=== PATIENT | male | born 1955 | race Caucasian/White ===

== ENCOUNTER 2018-01-13 06:55 | Day surgery (SDC) | payer BC ==
[2018-01-12 16:06] LABS: Absolute Lymphocytes (CBC) 2.5 K/uL (0.7-4.9); Absolute Monocytes 0.9 K/uL (0.1-1.3); Absolute Neutrophil 3.9 K/uL (1.8-8.0); Basophils % 0.6 % (0-1.3); Eosinophils % 4.3 % (0-4.4); Hematocrit 41.6 % (39.6-49.0); Lymphocytes % 32.4 % (15.3-44.8); MCH 34.3 pg (27.0-35.0); MCV 99.3 fL (80-100); MPV 8.3 fL (7.6-11.3); Monocytes % 12.1 % (3.3-12.3); RBC Red Blood Cell Count 4.19 M/uL (4.33-5.43)
[2018-01-12 16:19] LABS: Protime INR 1.73
[2018-01-12 16:33] LABS: Potassium 4.2 mmol/L (3.5-5.1)
[2018-01-13] MEDS ORDERED: NA CHLORIDE 0.9% 500 ML ONE (07:28)
[2018-01-13] MEDS ORDERED: MIDAZOLAM HCL 5 MG/5 ML INJ ONE (07:55)
--- NOTE | 2018-01-13 08:26 | EKG ---
Test Date: 2018-01-13 Test Time: 08:06:57 Nanotechnician: LORENA MEASUREMENT RESULTS: Intervals: Rate: 66 [place]: 190 QRSD: 80 QT: 458 QTc: 480 [place]: P: 42 [place]: 190 QRS: 49 T: 28 INTERPRETIVE STATEMENTS: Normal sinus rhythm Prolonged QT Abnormal ECG Compared to ECG 01/09/2016 08:31:04 Prolonged QT interval now present Sinus tachycardia no longer present Electronically Signed On 01-13-18 08:26:08 CDT by Yash Hutchinson
--- NOTE | 2018-01-13 11:11 | OP ---
Surgeon: Yash Hutchinson MD Primary Care Physician: Ronen Pulido MD Procedure: Direct current cardioversion. Findings: The patient was in AFib. With a single shock, he reverted to sinus rhythm. Procedure In Detail: He was brought to the cardiac woods laborer in a fasting state. He had taken Xarelt o more than 3 weeks. He had taken Multaq for a week. He was sedated with Versed. Anterior-posterio r paddles were applied to his chest. A single shock was given, synchronized the QRS complex. The rh ythm after the shock was sinus rhythm. No complications. /MODL Voice ID: [id number] Report ID: [id number]
== END 2018-01-13 09:20 | disposition home or self-care (01) ==
LOC: CCL 06:55
PROVIDERS: ATTEND Internal Medicine
PROC: 5A2204Z Restoration of Cardiac Rhythm, Single (ICD-10-PCS; principal; 2018-01-13)
DX: I48.91 Unspecified atrial fibrillation (principal); I10 Essential (primary) hypertension
CPT/HCPCS: 36415; 80048; 85025; 85610; 85730; 92960; 93005; J2250

== ENCOUNTER 2020-04-09 15:49 | Emergency (ER) | payer BC ==
--- NOTE | 2020-04-09 16:11 | RAD REPORT ---
EXAM DESCRIPTION: CT - Ct Stroke Brain Wo Cont - 04/09/2020 4:01 pm CLINICAL HISTORY: Numbness/right arm weakness COMPARISON: none TECHNIQUE: Computed axial tomography of the head was obtained. All CT scans are performed using dose optimization technique as appropriate and may include automated exposure control or mA/KV adjustment according to patient size. FINDINGS: An intracranial bleed is not seen . The ventricles are normal in caliber. No extra-axial fluid collection is noted. Fluid within the sinuses/ mastoids is not seen. IMPRESSION: No acute intracranial abnormality is seen. If patient's symptoms persist MRI of the bra in would be recommended. Karis Martinez of the emergency room was notified at 4:04 p.m. April 09, 2020
[2020-04-09] MEDS ORDERED: NA CHLORIDE 0.9% 1,000 ML ONE (16:31)
[2020-04-09 16:32] LABS: Protime INR 1.53
[2020-04-09] MEDS ORDERED: FOLIC ACID 5 MG/ML VIAL ONE (16:32)
[2020-04-09 16:35] LABS: Potassium 3.4 mmol/L (3.5-5.1)
[2020-04-09 16:36] LABS: Absolute Lymphocytes (CBC) 2.8 K/uL (0.7-4.9); Basophils % 0.8 % (0-1.3); Lymphocytes % 35.9 % (15.3-44.8); MPV 8.2 fL (7.6-11.3); RBC Red Blood Cell Count 4.51 M/uL (4.33-5.43)
--- NOTE | 2020-04-09 16:50 | RAD REPORT ---
EXAM DESCRIPTION: Jennifer Single View04/09/2020 4:20 pm CLINICAL HISTORY: Hypertension COMPARISON: none FINDINGS: The lungs appear clear of acute infiltrate. The heart is normal size IMPRESSION: No acute abnormalities displayed
--- NOTE | 2020-04-09 17:07 | EDPHYS ---
Physician Documentation [facility] Name: Sreedhar Posey Age: 64 yrs Sex: Male : 1955 Arrival Date: 04/09/2020 Time: 15:50 Bed 8 Private MD: ED Physician Cabrera Acuna HPI: 04/09 16:38 This 64 yrs old Male presents to ER via Ambulatory with complaints of S/S of chriss Possible Stroke. 16:38 The patient's problem is reported as a facial droop, paresthesias, weakness, in the chriss right upper extremity. Onset: The symptoms/episode began/occurred 2 hour(s) ago. Duration: The episodes are intermittent, lasting 90 second(s). Context: the episode(s) was witnessed, by no one, symptoms became apparent at 15:00. The symptoms are alleviated by nothing. The symptoms are aggravated by nothing. Associated signs and symptoms: The patient has no apparent associated signs or symptoms. Severity of symptoms: At their worst the symptoms were mild in the emergency department the symptoms have improved markedly. Patient's baseline: Neuro: alert and fully oriented. Historical: - Allergies: 16:10 No Known Allergies; aa5 - Home Meds: 19:17 Xarelto 20 mg oral tab 1 tab once daily [Active]; Rythmol 225 mg oral tab 1 tab twice a dm5 day [Active]; lisinopril-hydrochlorothiazide 20-12.5 mg oral tab 1 tab once daily [Active]; atorvastatin 10 mg oral tab 1 tab once daily [Active]; bisoprolol-hydrochlorothiazide 10-6.25 mg oral tab 1 tab once daily [Active]; - PMHx: 16:10 Atrial Fib; Hypertension; aa5 - PSHx: 16:10 Knee surgery; aa5 - Family history:: not pertinent. ROS: 16:38 Constitutional: Negative for fever, chills, and weight loss, Eyes: Negative for injury, chriss pain, redness, and discharge, ENT: Negative for injury, pain, and discharge, Neck: Negative for injury, pain, and swelling, Cardiovascular: Negative for chest pain, palpitations, and edema, Respiratory: Negative for shortness of breath, cough, wheezing, and pleuritic chest pain, Abdomen/GI: Negative for abdominal pain, nausea, vomiting, diarrhea, and constipation, Back: Negative for injury and pain, : Negative for injury, bleeding, discharge, and swelling, MS/Extremity: Negative for injury and deformity, Skin: Negative for injury, rash, and discoloration, Psych: Negative for depression, anxiety, suicide ideation, homicidal ideation, and hallucinations, Allergy/Immunology: Negative for hives, rash, and allergies, Endocrine: Negative for neck swelling, polydipsia, polyuria, polyphagia, and marked weight changes, Hematologic/Lymphatic: Negative for swollen nodes, abnormal bleeding, and unusual bruising. 16:38 Neuro: Positive for numbness, weakness, of the left jaw, right arm weakness and numbness. Exam: 16:38 Radiologist reports: negative chriss 16:38 Constitutional: This is a well developed, well nourished patient who is awake, alert, and in no acute distress. Head/Face: Normocephalic, atraumatic. Eyes: Pupils equal round and reactive to light, extra-ocular motions intact. Lids and lashes normal. Conjunctiva and sclera are non-icteric and not injected. Cornea within normal limits. Periorbital areas with no swelling, redness, or edema. ENT: Nares patent. No nasal discharge, no septal abnormalities noted. Tympanic membranes are normal and external auditory canals are clear. Oropharynx with no redness, swelling, or masses, exudates, or evidence of obstruction, uvula midline. Mucous membranes moist. Neck: Trachea midline, no thyromegaly or masses palpated, and no cervical lymphadenopathy. Supple, full range of motion without nuchal rigidity, or vertebral point tenderness. No Meningismus. Chest/axilla: Normal chest wall appearance and motion. Nontender with no deformity. No lesions are appreciated. Cardiovascular: Regular rate and rhythm with a normal S1 and S2. No gallops, murmurs, or rubs. Normal PMI, no JVD. No pulse deficits. Respiratory: Lungs have equal breath sounds bilaterally, clear to auscultation and percussion. No rales, rhonchi or wheezes noted. No increased work of breathing, no retractions or nasal flaring. Abdomen/GI: Soft, non-tender, with normal bowel sounds. No distension or tympany. No guarding or rebound. No evidence of tenderness throughout. Back: No spinal tenderness. No costovertebral tenderness. Full range of motion. Male : Normal genitalia with no discharge or lesions. Skin: Warm, dry with normal turgor. Normal color with no rashes, no lesions, and no evidence of cellulitis. MS/ Extremity: Pulses equal, no cyanosis. Neurovascular intact. Full, normal range of motion. Neuro: Awake and alert, GCS 15, oriented to person, place, time, and situation. Cranial nerves II-XII grossly intact. Motor strength 5/5 in all extremities. Sensory grossly intact. Cerebellar exam normal. Normal gait. Psych: Awake, alert, with orientation to person, place and time. Behavior, mood, and affect are within normal limits. 16:43 ECG was reviewed by the Attending Physician. [facility] Vital Signs: 16:10 BP 126 / 81; Pulse 67; Resp 20 S; Temp 98.3(O); Pulse Ox 98% on R/A; aa5 17:00 BP 124 / 68; Pulse 68; Resp 18; Pulse Ox 98% ; bp 18:00 BP 139 / 80; Pulse 58; Resp 16 S; Pulse Ox 98% on R/A; aa5 19:38 BP 129 / 70; Pulse 56 MON; Resp 18; Temp 98.3; Pulse Ox 98% on R/A; sg NIH Stroke Scale Scores: 16:10 NIHSS Score: 0 aa5 16:43 NIHSS Score: 0 chriss 17:15 NIHSS Score: 0 bp 18:20 NIHSS Score: 0 aa5 MDM: 15:54 Patient medically screened. chriss 16:42 Differential diagnosis: CVA, TIA, Dementia, metabolic disorder. Data reviewed: vital chriss signs, nurses notes. Data interpreted: bus monitor: rate is 67 beats/min, rhythm is normal sinus rhythm. Test interpretation: by ED physician or midlevel provider: ECG, plain radiologic studies. Counseling: I had a detailed discussion with the patient and/or guardian regarding: the historical points, exam findings, and any diagnostic results supporting the discharge/admit diagnosis, lab results, radiology results. Physician consultation: Kevin Aguilar MD regarding if ct angio head and neck negative keep here. 04/09 15:56 Order name: Basic Metabolic Panel; Complete Time: 16:37 aa5 04/09 15:56 Order name: CBC with Diff; Complete Time: 17:45 aa5 04/09 15:56 Order name: Protime (+inr); Complete Time: 17:45 04/09 15:56 Order name: Ptt, Activated; Complete Time: 17:45 04/09 16:13 Order name: TSH; Complete Time: 17:45 chriss 04/09 16:21 Order name: Glucose, Ancillary Testing; Complete Time: 16:34 EDMS 04/09 15:54 Order name: CT Stroke Brain w/o Contrast; Complete Time: 16:34 ca1 04/09 15:56 Order name: Stroke CXR 1 View; Complete Time: 17:45 aa5 04/09 16:14 Order name: Head Angio CT; Complete Time: 19:12 bd 04/09 16:14 Order name: Neck Angio CT; Complete Time: 19:12 bd 04/09 19:04 Order name: Urine Dipstick--Ancillary (enter results) tt3 04/09 20:15 Order name: SARS-COV-2 RT PCR EDMS 04/09 15:56 Order name: EKG; Complete Time: 15:56 04/09 15:56 Order name: Accucheck; Complete Time: 16:09 04/09 15:56 Order name: Cardiac monitoring; Complete Time: 16:09 04/09 15:56 Order name: EKG - Nurse/Tech; Complete Time: 16:09 04/09 15:56 Order name: IV Saline Lock; Complete Time: 16:09 04/09 15:56 Order name: Labs collected and sent; Complete Time: 16:10 04/09 15:56 Order name: NPO; Complete Time: 16:10 04/09 15:56 Order name: O2 Per Protocol; Complete Time: 16:10 04/09 15:56 Order name: O2 Sat Monitoring; Complete Time: 16:10 04/09 15:56 Order name: Stroke Swallow Screen; Complete Time: 16:10 04/09 16:13 Order name: Urine Dipstick-Ancillary (obtain specimen); Complete Time: 19:08 [facility] EC:43 Rate is 75 beats/min. Rhythm is regular. QRS [place] is Normal. [place] interval is normal. QRS chriss interval is normal. QT interval is normal. No Q waves. T waves are Normal. No ST changes noted. Clinical impression: Normal ECG and No evidence of ischemia. Interpreted by me. Reviewed by me. Administered Medications: 16:18 Drug: NS 0.9% 1000 ml Route: IV; Rate: 1 bolus; Site: right antecubital; aa5 18:32 Follow up: IV Status: Completed infusion; IV Intake: 1000ml bp 16:18 Drug: foLIC Acid 1 mg Route: IVPB; Site: right antecubital; aa5 18:31 Follow up: IV Status: Completed infusion; IV Intake: 100ml bp 17:30 Drug: Lipitor 20 mg Route: PO; aa5 18:31 Follow up: Response: No adverse reaction bp 18:00 Drug: NS 0.9% with KCl 20 mEq/L 1000 ml Route: IV; Rate: 125 ml/hr; Site: right bp antecubital; 20:00 Drug: Rythmol 225 mg Route: PO; dm5 21:00 Follow up: Response: No adverse reaction sg Point of Care Testing: Blood Glucose: 16:10 Blood Glucose: 205 mg/dL; aa5 Ranges: Critical Glucose Levels:Adult <50 mg/dl or >400 mg/dl <40 mg/dl or >180 mg/dl Disposition: 04/09/20 17:56 Transfer ordered to [facility]. Diagnosis are Transient cerebral ischemic attack, unspecified, Occlusion and stenosis of carotid artery - 70 % bulb on the left. - Reason for transfer: Higher level of care. - Accepting physician is to [facility], neuro. - Condition is Fair. - Problem is new. - Symptoms have improved. NIH Stroke Scale - NIH Stroke Score Date: 04/09/2020 Time: 16:10 Total Score = 0 1a. Level of Consciousness (LOC) - 0(Alert) 1b. Level of Consciousness (LOC) (Year \T\ Age) - 0(Both) 1c. LOC Commands (Open \T\ Closes Eyes/Blending Tank Tender) - 0(Both) 2. Best Gaze (Lateral Gaze Paresis) - 0(Normal) 3. Visual Field Loss - 0(No visual loss) 4. Facial Palsy - 0(Normal) 5a. Left Arm: Motor (10-second hold) - 0(No drift) 5b. Right Arm: Motor (10-second hold) - 0(No drift) 6a. Left Leg: Motor (5-second hold - always test supine) - 0(No drift) 6b. Right Leg: Motor (5-second hold - always test supine) - 0(No drift) 7. Limb Ataxia (finger/nose \T\ heel/gutierrez - test with eyes open) - 0(Absent) 8. Sensory Loss (pinprick arms/legs/face) - 0(Normal) 9. Best Language: Aphasia (description/naming/reading) - 0(No aphasia) 10. Dysarthria (speech clarity - read or repeat words) - 0(Normal) 11. Extinction and Inattention (visual/tactile/auditory/spatial/personal) - 0(No abnormality) Initials: aa5 NIH Stroke Scale - NIH Stroke Score Date: 04/09/2020 Time: 16:43 Total Score = 0 1a. Level of Consciousness (LOC) - 0(Alert) 1b. Level of Consciousness (LOC) (Year \T\ Age) - 0(Both) 1c. LOC Commands (Open \T\ Closes Eyes/Blending Tank Tender) - 0(Both) 2. Best Gaze (Lateral Gaze Paresis) - 0(Normal) 3. Visual Field Loss - 0(No visual loss) 4. Facial Palsy - 0(Normal) 5a. Left Arm: Motor (10-second hold) - 0(No drift) 5b. Right Arm: Motor (10-second hold) - 0(No drift) 6a. Left Leg: Motor (5-second hold - always test supine) - 0(No drift) 6b. Right Leg: Motor (5-second hold - always test supine) - 0(No drift) 7. Limb Ataxia (finger/nose \T\ heel/gutierrez - test with eyes open) - 0(Absent) 8. Sensory Loss (pinprick arms/legs/face) - 0(Normal) 9. Best Language: Aphasia (description/naming/reading) - 0(No aphasia) 10. Dysarthria (speech clarity - read or repeat words) - 0(Normal) 11. Extinction and Inattention (visual/tactile/auditory/spatial/personal) - 0(No abnormality) Initials: chriss NIH Stroke Scale - NIH Stroke Score Date: 04/09/2020 Time: 17:15 Total Score = 0 1a. Level of Consciousness (LOC) - 0(Alert) 1b. Level of Consciousness (LOC) (Year \T\ Age) - 0(Both) 1c. LOC Commands (Open \T\ Closes Eyes/Blending Tank Tender) - 0(Both) 2. Best Gaze (Lateral Gaze Paresis) - 0(Normal) 3. Visual Field Loss - 0(No visual loss) 4. Facial Palsy - 0(Normal) 5a. Left Arm: Motor (10-second hold) - 0(No drift) 5b. Right Arm: Motor (10-second hold) - 0(No drift) 6a. Left Leg: Motor (5-second hold - always test supine) - 0(No drift) 6b. Right Leg: Motor (5-second hold - always test supine) - 0(No drift) 7. Limb Ataxia (finger/nose \T\ heel/gutierrez - test with eyes open) - 0(Absent) 8. Sensory Loss (pinprick arms/legs/face) - 0(Normal) 9. Best Language: Aphasia (description/naming/reading) - 0(No aphasia) 10. Dysarthria (speech clarity - read or repeat words) - 0(Normal) 11. Extinction and Inattention (visual/tactile/auditory/spatial/personal) - 0(No abnormality) Initials: bp NIH Stroke Scale - NIH Stroke Score Date: 04/09/2020 Time: 18:20 Total Score = 0 1a. Level of Consciousness (LOC) - 0(Alert) 1b. Level of Consciousness (LOC) (Year \T\ Age) - 0(Both) 1c. LOC Commands (Open \T\ Closes Eyes/Blending Tank Tender) - 0(Both) 2. Best Gaze (Lateral Gaze Paresis) - 0(Normal) 3. Visual Field Loss - 0(No visual loss) 4. Facial Palsy - 0(Normal) 5a. Left Arm: Motor (10-second hold) - 0(No drift) 5b. Right Arm: Motor (10-second hold) - 0(No drift) 6a. Left Leg: Motor (5-second hold - always test supine) - 0(No drift) 6b. Right Leg: Motor (5-second hold - always test supine) - 0(No drift) 7. Limb Ataxia (finger/nose \T\ heel/gutierrez - test with eyes open) - 0(Absent) 8. Sensory Loss (pinprick arms/legs/face) - 0(Normal) 9. Best Language: Aphasia (description/naming/reading) - 0(No aphasia) 10. Dysarthria (speech clarity - read or repeat words) - 0(Normal) 11. Extinction and Inattention (visual/tactile/auditory/spatial/personal) - 0(No abnormality) Initials: rico5 Signatures: Dispatcher [employer] EDSC Zuri Gant, RN RN 5 Capo Loyola RN RN Cabrera Mancia MD MD cha Calderon, Audri, RN RN aa5 Ronen Gil RN RN bp Corrections: (The following items were deleted from the chart) 17:51 17:06 Hospitalization Ordered by Ramsey Solares DO for Inpatient Admission. [facility] Preliminary diagnosis is Transient cerebral ischemic attack, unspecified - right face and right arm weakness; Aphasia. Bed requested for Telemetry/MedSurg (Inpatient). Status is Inpatient Admission. Condition is Fair. Problem is new. Symptoms have improved. [facility] 19:17 16:10 Home Meds: Xarelto oral oral; cal [id number] 19:17 16:10 Home Meds: Lisinopril Oral; cal david 19:17 16:10 Home Meds: Rythmol Oral; [place] [id number] 19:27 19:14 CORONAVIRUS+MR.LAB.CHRISTOPHERZ ordered. [facility] EDMS 22:32 17:56 04/09/2020 17:[address] [facility]. Diagnosis is Transient cerebral ischemic attack, unspecified; Occlusion and stenosis of carotid artery - 70 % bulb on the left. Reason for transfer: Higher level of care. Accepting physician is to [facility], neuro. Condition is Fair. Problem is new. Symptoms have improved. chriss
--- NOTE | 2020-04-09 17:07 | ER ---
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 ca1 Symptoms resolved at this time. Had headache off and on for 2 days and visual problems. HX of A-fib. Pt on Xarelto. VAN negative. Negative slurring. Negative facial droop. Onset of symptoms was April 09, 2020 at 15:10. 15:55 Method Of Arrival: Ambulatory ca1 15:55 Acuity: JOSE 2 ca1 15:55 An acute neurological deficit is present. Pre-hospital glucose is not applicable to aa5 this patient. 16:10 Risk Assessment: Do you want to hurt yourself or someone else? Patient reports no aa5 desire to harm self or others. 16:10 Coronavirus screen: Client denies travel out of the [place] in the last 14 days. At this aa5 time, the client does not indicate any symptoms associated with coronavirus-19. Ebola Screen: Patient negative for fever greater than or equal to 101.5 degrees Fahrenheit, and additional compatible Ebola Virus Disease symptoms. Initial Sepsis Screen: Does the patient meet any 2 criteria? No. Patient's initial sepsis screen is negative. Does the patient have a suspected source of infection? No. Patient's initial sepsis screen is negative. Stroke Activation: Symptom onset < 3 hours Physician: Stroke Attending; Name: ; Notified At: ; Arrived At: Physician: Chief Stroke Resident; Name: ; Notified At: ; Arrived At: Physician: Stroke Resident; Name: ; Notified At: ; Arrived At: Physician: ED Attending; Name: ; Notified At: ; Arrived At: Physician: ED Resident; Name: ; Notified At: ; Arrived At: Historical: - Allergies: 16:10 No Known Allergies; aa5 - Home Meds: 19:17 Xarelto 20 mg oral tab 1 tab once daily [Active]; Rythmol 225 mg oral tab 1 tab twice a dm5 day [Active]; lisinopril-hydrochlorothiazide 20-12.5 mg oral tab 1 tab once daily [Active]; atorvastatin 10 mg oral tab 1 tab once daily [Active]; bisoprolol-hydrochlorothiazide 10-6.25 mg oral tab 1 tab once daily [Active]; - PMHx: 16:10 Atrial Fib; Hypertension; aa5 - PSHx: 16:10 Knee surgery; aa5 - Family history:: not pertinent. Screenin:10 Abuse screen: Denies threats or abuse. Nutritional screening: No deficits noted. aa5 Tuberculosis screening: No symptoms or risk factors identified. Fall Risk None identified. Assessment: 16:01 Reassessment: Dr. Acuna at bedside. ca1 16:08 Reassessment: Pt back from CT scan . aa5 16:10 VAN Scoring: Arm Drift: Patients demonstrates NO arm weakness. Patient is VAN Negative. aa5 Visual Disturbance: No visual disturbance noted. Aphasia: No aphasia noted. Neglect: No neglect noted. 16:10 General: Appears comfortable, Behavior is calm, cooperative. Pain: Denies pain. Neuro: aa5 Level of Consciousness is awake, alert, obeys commands, Oriented to person, place, time, situation, Appropriate for age Hop Weigher are equal bilaterally Moves all extremities. Speech is normal, Facial symmetry appears normal, Pupils are PERRLA, Denies weakness blurred vision dizziness, difficulty swallowing, paresthesias numbness headache diplopia. Cardiovascular: Heart tones S1 S2 present. Respiratory: Airway is patent Respiratory effort is even, unlabored, Respiratory pattern is regular, symmetrical, Denies cough, shortness of breath. GI: No signs and/or symptoms were reported involving the gastrointestinal system. Patient currently denies diarrhea, nausea, vomiting. : No signs and/or symptoms were reported regarding the genitourinary system. EENT: No signs and/or symptoms were reported regarding the EENT system. Derm: Skin is pink, warm \T\ dry. Musculoskeletal: Range of motion: intact in all extremities. 16:10 T-PA (Activase) Screening: Contraindications: Rapidly improving condition or minor aa5 deficit: Yes. 16:20 Patient has been NPO before screening. The patient is alert, and able to follow aa5 commands. The patient does not exhibit slurred or garbled speech. The patient is not exhibiting difficulty speaking. The patient does not exhibit difficulty understanding words. The patient is able to swallow own secretions with no drooling or need for suction. Patient tolerated one teaspoon of water. No drooling, immediate coughing, gurgling, or clearing of the throat was noted. The patient tolerated 90mL of water. No drooling, immediate coughing, gurgling, or clearing of the throat was noted. The patient passed the bedside swallow screening. Oral medications may be given as ordered. Contact Physician for further diet orders. Provider notified of bedside swallow screening results: Cabrera Acuna MD. 17:15 Reassessment: PT RETURNED FROM CT. bp 17:15 Reassessment: Patient appears in no apparent distress at this time. No changes from bp previously documented assessment. Patient and/or family updated on plan of care and expected duration. Pain level reassessed. Patient is alert, oriented x 3, equal unlabored respirations, skin warm/dry/pink. 18:20 Reassessment: Patient is alert, oriented x 3, equal unlabored respirations, skin aa5 warm/dry/pink. Patient denies pain at this time. 20:18 Reassessment: attempt to call report to receiving nurse, awaiting admin approval for pt sg transfer, Yandy RN with [facility] requesting 10 more minutes for a call back. 21:11 Reassessment: Patient appears in no apparent distress at this time. Patient and/or sg family updated on plan of care and expected duration. Pain level reassessed. Patient is alert, oriented x 3, equal unlabored respirations, skin warm/dry/pink. no call back from transfer center, attempt to call them, [place] [facility] coordinator states that she is awaiting a call back from the [facility] for patient placement at this time, awaiting another call back for this patient transfer. 21:21 Reassessment: Patient appears in no apparent distress at this time. Patient is alert, sg oriented x 3, equal unlabored respirations, skin warm/dry/pink. pt updated on transfer status, placed to a hospital bed for comfort while awaiting pt transfer at this time. 21:26 Reassessment: orders to hld pt at this facility until [facility] has patient sg placement her Mildred RN, pt to remain in the facility until instructed to call report. Charge Nurse aware. 21:40 Reassessment: Report called to Erika GUERRERO for patient transfer, pt signatures obtained, sg awaiting EMS transport at this time, pt stated understanding. Vital Signs: 16:10 BP 126 / 81; Pulse 67; Resp 20 S; Temp 98.3(O); Pulse Ox 98% on R/A; aa5 17:00 BP 124 / 68; Pulse 68; Resp 18; Pulse Ox 98% ; bp 18:00 BP 139 / 80; Pulse 58; Resp 16 S; Pulse Ox 98% on R/A; aa5 19:38 BP 129 / 70; Pulse 56 MON; Resp 18; Temp 98.3; Pulse Ox 98% on R/A; sg NIH Stroke Scale Scores: 16:10 NIHSS Score: 0 aa5 16:43 NIHSS Score: 0 chriss 17:15 NIHSS Score: 0 bp 18:20 NIHSS Score: 0 aa5 ED Course: 15:50 Patient arrived in ED. as 15:53 Gabbie Brewer, CESAR is Primary Nurse. aa5 15:54 Cabrera Acuna MD is Attending Physician. chriss 15:57 Triage completed. ca1 16:00 CT Stroke Brain w/o Contrast In Process Unspecified. EDMS 16:01 Arm band placed on right wrist. ca1 16:10 Patient has correct armband on for positive identification. Placed in gown. Bed in low mh5 position. Call light in reach. Side rails up X 1. Warm blanket given. property assessment monitor on. Pulse ox on. NIBP on. 16:10 EKG done, by ED staff, reviewed by Cabrera Acuna MD. mh5 16:10 Initial lab(s) drawn, by md, sent to lab. Inserted saline lock: 18 gauge in right aa5 antecubital area, using aseptic technique. Blood collected. 16:11 Ptt, Activated Sent. mh5 16:11 Protime (+inr) Sent. mh5 16:11 CBC with Diff Sent. mh5 16:11 Basic Metabolic Panel Sent. mh5 16:23 Stroke CXR 1 View In Process Unspecified. EDMS 17:01 Ramsey Solares DO is Hospitalizing Provider. chriss 17:[address] In Process Unspecified. EDMS 17:[address] In Process Unspecified. EDMS 19:00 Report given to Capo Loyola RN. aa5 19:28 COVID swab sent to lab. 19:39 Primary Nurse role handed off by Gabbie Brewer, RN sg 19:39 Capo Loyola, RN is Primary Nurse. sg Administered Medications: 16:18 Drug: NS 0.9% 1000 ml Route: IV; Rate: 1 bolus; Site: right antecubital; aa5 18:32 Follow up: IV Status: Completed infusion; IV Intake: 1000ml bp 16:18 Drug: foLIC Acid 1 mg Route: IVPB; Site: right antecubital; aa5 18:31 Follow up: IV Status: Completed infusion; IV Intake: 100ml bp 17:30 Drug: Lipitor 20 mg Route: PO; aa5 18:31 Follow up: Response: No adverse reaction bp 18:00 Drug: NS 0.9% with KCl 20 mEq/L 1000 ml Route: IV; Rate: 125 ml/hr; Site: right bp antecubital; 20:00 Drug: Rythmol 225 mg Route: PO; dm5 21:00 Follow up: Response: No adverse reaction sg Point of Care Testing: Blood Glucose: 16:10 Blood Glucose: 205 mg/dL; aa5 Ranges: Intake: 18:31 IV: 100ml; Total: 100ml. bp 18:32 IV: 1000ml; Total: 1100ml. bp Outcome: 17:06 Decision to Hospitalize by Provider. chriss 17:56 ER care complete, transfer ordered by . chriss 22:32 Patient left the ED. NIH Stroke Scale - NIH Stroke Score Date: 04/09/2020 Time: 16:10 Total Score = 0 1a. Level of Consciousness (LOC) - 0(Alert) 1b. Level of Consciousness (LOC) (Year \T\ Age) - 0(Both) 1c. LOC Commands (Open \T\ Closes Eyes/Health Program Manager) - 0(Both) 2. Best Gaze (Lateral Gaze Paresis) - 0(Normal) 3. Visual Field Loss - 0(No visual loss) 4. Facial Palsy - 0(Normal) 5a. Left Arm: Motor (10-second hold) - 0(No drift) 5b. Right Arm: Motor (10-second hold) - 0(No drift) 6a. Left Leg: Motor (5-second hold - always test supine) - 0(No drift) 6b. Right Leg: Motor (5-second hold - always test supine) - 0(No drift) 7. Limb Ataxia (finger/nose \T\ heel/gutierrez - test with eyes open) - 0(Absent) 8. Sensory Loss (pinprick arms/legs/face) - 0(Normal) 9. Best Language: Aphasia (description/naming/reading) - 0(No aphasia) 10. Dysarthria (speech clarity - read or repeat words) - 0(Normal) 11. Extinction and Inattention (visual/tactile/auditory/spatial/personal) - 0(No abnormality) Initials: aa5 NIH Stroke Scale - NIH Stroke Score Date: 04/09/2020 Time: 16:43 Total Score = 0 1a. Level of Consciousness (LOC) - 0(Alert) 1b. Level of Consciousness (LOC) (Year \T\ Age) - 0(Both) 1c. LOC Commands (Open \T\ Closes Eyes/Health Program Manager) - 0(Both) 2. Best Gaze (Lateral Gaze Paresis) - 0(Normal) 3. Visual Field Loss - 0(No visual loss) 4. Facial Palsy - 0(Normal) 5a. Left Arm: Motor (10-second hold) - 0(No drift) 5b. Right Arm: Motor (10-second hold) - 0(No drift) 6a. Left Leg: Motor (5-second hold - always test supine) - 0(No drift) 6b. Right Leg: Motor (5-second hold - always test supine) - 0(No drift) 7. Limb Ataxia (finger/nose \T\ heel/gutierrez - test with eyes open) - 0(Absent) 8. Sensory Loss (pinprick arms/legs/face) - 0(Normal) 9. Best Language: Aphasia (description/naming/reading) - 0(No aphasia) 10. Dysarthria (speech clarity - read or repeat words) - 0(Normal) 11. Extinction and Inattention (visual/tactile/auditory/spatial/personal) - 0(No abnormality) Initials: chriss NIH Stroke Scale - NIH Stroke Score Date: 04/09/2020 Time: 17:15 Total Score = 0 1a. Level of Consciousness (LOC) - 0(Alert) 1b. Level of Consciousness (LOC) (Year \T\ Age) - 0(Both) 1c. LOC Commands (Open \T\ Closes Eyes/Health Program Manager) - 0(Both) 2. Best Gaze (Lateral Gaze Paresis) - 0(Normal) 3. Visual Field Loss - 0(No visual loss) 4. Facial Palsy - 0(Normal) 5a. Left Arm: Motor (10-second hold) - 0(No drift) 5b. Right Arm: Motor (10-second hold) - 0(No drift) 6a. Left Leg: Motor (5-second hold - always test supine) - 0(No drift) 6b. Right Leg: Motor (5-second hold - always test supine) - 0(No drift) 7. Limb Ataxia (finger/nose \T\ heel/gutierrez - test with eyes open) - 0(Absent) 8. Sensory Loss (pinprick arms/legs/face) - 0(Normal) 9. Best Language: Aphasia (description/naming/reading) - 0(No aphasia) 10. Dysarthria (speech clarity - read or repeat words) - 0(Normal) 11. Extinction and Inattention (visual/tactile/auditory/spatial/personal) - 0(No abnormality) Initials: bp NIH Stroke Scale - NIH Stroke Score Date: 04/09/2020 Time: 18:20 Total Score = 0 1a. Level of Consciousness (LOC) - 0(Alert) 1b. Level of Consciousness (LOC) (Year \T\ Age) - 0(Both) 1c. LOC Commands (Open \T\ Closes Eyes/Health Program Manager) - 0(Both) 2. Best Gaze (Lateral Gaze Paresis) - 0(Normal) 3. Visual Field Loss - 0(No visual loss) 4. Facial Palsy - 0(Normal) 5a. Left Arm: Motor (10-second hold) - 0(No drift) 5b. Right Arm: Motor (10-second hold) - 0(No drift) 6a. Left Leg: Motor (5-second hold - always test supine) - 0(No drift) 6b. Right Leg: Motor (5-second hold - always test supine) - 0(No drift) 7. Limb Ataxia (finger/nose \T\ heel/gutierrez - test with eyes open) - 0(Absent) 8. Sensory Loss (pinprick arms/legs/face) - 0(Normal) 9. Best Language: Aphasia (description/naming/reading) - 0(No aphasia) 10. Dysarthria (speech clarity - read or repeat words) - 0(Normal) 11. 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 Had headache off and on for several days and visual problems. HX of A-fib. Pt on Xarelto. ca1 19:17 16:10 Home Meds: Xarelto oral oral; aa5 dm5 19:17 16:10 Home Meds: Lisinopril Oral; aa5 dm5 19:17 16:10 Home Meds: Rythmol Oral; aa5 dm5
[2020-04-09] MEDS ORDERED: ATORVASTATIN 20 MG TAB ONE (17:47)
--- NOTE | 2020-04-09 17:48 | RAD REPORT ---
EXAM DESCRIPTION: Florentino Angio04/09/2020 5:12 pm CLINICAL HISTORY: Numbness/right-sided arm weakness COMPARISON: None TECHNIQUE: 50 cc Isovue 370 was administered intravenously. 3D MIP reconstruction performed All CT scans are performed using dose optimization technique as appropriate and may include automated exposure control or mA/KV adjustment according to patient size. FINDINGS: Plaque is present within the left carotid bulb. There is narrowing approximately 70%. The right and left common carotid, right and left external carotid and right internal carotid arterie s appear unremarkable. The left vertebral artery is more dominant than the right. No abnormality noted IMPRESSION: Severe stenosis left carotid bulb estimated approximately 70% NASCET criteria used. Mild 0-49% stenosis Moderate 50-69% stenosis Severe 70-99% stenosis
--- NOTE | 2020-04-09 17:59 | RAD REPORT ---
EXAM DESCRIPTION: CTHead angio04/09/2020 5:12 pm CLINICAL HISTORY: numbness COMPARISON: None TECHNIQUE: CT angiogram of the head was obtained. 3D MIPS reconstruction performed. All CT scans are performed using dose optimization technique as appropriate and may include automated exposure control or mA/KV adjustment according to patient size. FINDINGS: The basilar, internal carotid, anterior cerebral, middle cerebral and posterior cerebral a rteries are normal caliber. An aneurysm is not seen. A significant stenosis is not noted. IMPRESSION: Unremarkable CT angiogram head.
[2020-04-09] MEDS ORDERED: NS KCL 20MEQ 1,000 ML IV ONE (18:40)
[2020-04-09] MEDS ORDERED: PROPAFENONE HCL 150 MG TAB ONE (20:04)
[2020-04-09 20:07] LABS: Urine Blood NEGATIVE (NEG); Urine Glucose NEGATIVE (NEG); Urine Protein NEGATIVE (NEG); Urine Specific Gravity 1.015 (1.005-1.030); Urine pH 5.5 (5.0-7.0)
[2020-04-09 22:37] VITALS: TEMP 98.3; O2SAT 98
[2020-04-09 22:41] VITALS: BP 129/70
--- NOTE | 2020-04-10 17:15 | EKG ---
Test Date: 2020-04-09 Test Time: 16:02:06 [place] Operator: RAJNI MEASUREMENT RESULTS: Intervals: Rate: 75 ID: [id number] QRSD: 94 QT: 402 QTc: 448 [place]: P: 54 ID: [id number] QRS: 48 T: 37 INTERPRETIVE STATEMENTS: Normal sinus rhythm Normal ECG Compared to ECG 01/13/2018 08:06:57 Prolonged QT interval no longer present Electronically Signed On 04-10-20 17:13:01 DEVELOPMENT EXPERT by Jacob Jules
== END 2020-04-09 22:32 | disposition short-term general hospital (02) ==
LOC: ER 15:49
DX: G45.9 Transient cerebral ischemic attack, unspecified (principal); I65.22 Occlusion and stenosis of left carotid artery; R29.700 NIHSS score 0; I10 Essential (primary) hypertension; I48.91 Unspecified atrial fibrillation; Z20.822 Contact with and (suspected) exposure to COVID-19; Z79.01 Long term (current) use of anticoagulants
CPT/HCPCS: 96365; 93005; 85025; 80048; 36415; 85610; 82947; 85730; 84443; 81003; 70496; 70498; 70450; 71045; 99284; 96366; U0003; Q9967 ×2; J7030; J3480

== ENCOUNTER 2020-09-17 06:22 | Day surgery (SDC) | payer BC ==
[2020-09-13 13:24] LABS: Absolute Lymphocytes (CBC) 2.4 K/uL (0.7-4.9); Basophils % 0.6 % (0-1.3); Hematocrit 44.6 % (39.6-49.0); Lymphocytes % 34.6 % (15.3-44.8); MPV 7.9 fL (7.6-11.3); RBC Red Blood Cell Count 4.56 M/uL (4.33-5.43)
[2020-09-13 13:28] LABS: Protime INR 1.23
[2020-09-13 13:39] LABS: Potassium 4.2 mmol/L (3.5-5.1)
--- NOTE | 2020-09-14 15:59 | EKG ---
Test Date: 2020-09-13 Test Time: 11:57:35 [place] Operator: KASIE MEASUREMENT RESULTS: Intervals: Rate: 80 NM: QRSD: 92 QT: 408 QTc: 470 [place]: P: NM: QRS: 57 T: 36 INTERPRETIVE STATEMENTS: Atrial fibrillation Abnormal ECG Compared to ECG 04/09/2020 16:02:06 Sinus rhythm no longer present Electronically Signed On 09-14-20 15:56:12 CDT by Jacob Jules
[2020-09-17] MEDS ORDERED: NA CHLORIDE 0.9% 500 ML ONE (07:16)
[2020-09-17] MEDS ORDERED: ATROPINE SULF 1 MG/10 ML SYR IV ONE (07:33)
[2020-09-17] MEDS ORDERED: FLUMAZENIL 0.1 MG/ML (5 mL VIAL) IV ONE (07:33)
[2020-09-17] MEDS ORDERED: MIDAZOLAM HCL 10 ML ONE (07:33)
[2020-09-17 09:03] VITALS: O2SAT 95
[2020-09-17 09:43] VITALS: BP 124/76; TEMP 97
--- NOTE | 2020-09-17 13:52 | OP ---
Date of Procedure: 09/17/2020 Surgeon: Jacob Jules MD [employer] [place] Supervisor: Ms. Fernanda Jerry. The patient will go home when he wakes up and we will see him in the office in the next week or two. Procedure Performed: Cardioversion. Indication For Cardioversion: Recurrent atrial fibrillation, on propafenone and Eliquis. History Of Present Illness: Mr. Galeana is 64, has a history of hypertension; dyslipidemia; paroxysm al atrial fibrillation unresponsive to Rythmol with rapid ventricular response and symptoms. Description Of Procedure: Brought to the energy systems laboratory director today as an outpatient. He received a total of 7 mg of IV push Versed for total sedation. He received 1 shock of 200 joules and he converted to sinus rhythm. There were no complications or blood loss. Postoperative Diagnosis: Status post successful cardioversion of atrial fibrillation to sinus rhythm . We will continue his home medication. Anesthesia: Total conscious sedation was 30 minutes. EFE/AUDRA Voice ID: [id number] Report ID: [id number]
--- NOTE | 2020-09-18 12:59 | EKG ---
Test Date: 2020-09-17 Test Time: 06:45:36 [place]our Worker: MEASUREMENT RESULTS: Intervals: Rate: 61 IN: 196 QRSD: 98 QT: 456 QTc: 459 [place]: P: 21 IN: 196 QRS: 38 T: 15 INTERPRETIVE STATEMENTS: Normal sinus rhythm Possible Inferior infarct, age undetermined Abnormal ECG Compared to ECG 09/13/2020 11:57:35 Myocardial infarct finding now present Atrial fibrillation no longer present Electronically Signed On 09-18-20 12:54:11 CDT by Jacob Jules
== END 2020-09-17 09:30 | disposition home or self-care (01) ==
LOC: CCL 06:22
DX: I48.0 Paroxysmal atrial fibrillation (principal); I10 Essential (primary) hypertension; E78.2 Mixed hyperlipidemia; Z79.01 Long term (current) use of anticoagulants
CPT/HCPCS: 93005; 85025; 80048; 36415; 85610; 85730; 92960; J2250; J7040

== ENCOUNTER 2024-08-04 10:14 | Day surgery (SDC) | payer OTHER, BC ==
[2024-08-03 11:38] LABS: Absolute Eosinophils 0.2 K/uL (0-0.5); Absolute Lymphocytes (CBC) 2.3 K/uL (0.7-4.9); Absolute Monocytes 0.5 K/uL (0.1-1.3); Absolute Neutrophil 3.1 K/uL (1.8-8.0); Basophils % 0.6 % (0-1.3); Eosinophils % 3.9 % (0-4.4); Hematocrit 43.4 % (39.6-49.0); Hemoglobin 15.5 g/dL (13.6-17.9); Lymphocytes % 36.9 % (15.3-44.8); MCH 34.3 pg (27.0-35.0); MCHC 35.6 g/dL (32.0-36.0); MCV 96.1 fL (80-100); MPV 7.4 fL (7.6-11.3); Monocytes % 8.7 % (3.3-12.3); Neutrophils % 49.9 % (41.7-73.7); Platelets 222 thou/uL (152-406); RBC Red Blood Cell Count 4.51 M/uL (4.33-5.43)
[2024-08-03 12:03] LABS: Anion Gap 5.7 mEq/L (5.0-15.0); Potassium 4.7 mEq/L (3.5-5.1)
--- NOTE | 2024-08-03 12:12 | EKG ---
Test Date: 2024-08-03 Test Time: 11:23:34 Data Assistant: SAVANNAH MEASUREMENT RESULTS: Intervals: Rate: 50 [place]: 194 QRSD: 86 QT: 444 QTc: 404 [place]: P: 38 [place]: 194 QRS: 65 T: 51 INTERPRETIVE STATEMENTS: Sinus bradycardia Otherwise normal ECG Compared to ECG 09/17/2020 06:45:36 Sinus rhythm no longer present Myocardial infarct finding no longer present Electronically Signed On 08-03-24 12:11:33 CDT by Tramaine Larson
[2024-08-04] MEDS: Ringers Lactate 1,000 ML IV ONE (10:48)
[2024-08-04] MEDS ORDERED: propofoL 200 MG/20 ML VIAL IV ONE ×2 (10:58→10:59)
[2024-08-04] MEDS ORDERED: LIDOCAINE 1% MPF 5 ML VIAL ONE ×2 (10:58→10:59)
[2024-08-04 13:12] VITALS: TEMP 97.6
[2024-08-04 13:14] VITALS: BP 137/74; O2SAT 99
== END 2024-08-04 12:40 | disposition home or self-care (01) ==
LOC: OR 10:14
PROVIDERS: ATTEND Surgery
PROC: 0DBM8ZX Excision of Descending Colon, Via Natural or Artificial Opening Endoscopic, Diagnostic (ICD-10-PCS; 2024-08-04)
PROC: 0DBH8ZX Excision of Cecum, Via Natural or Artificial Opening Endoscopic, Diagnostic (ICD-10-PCS; 2024-08-04)
PROC: 0DBK8ZX Excision of Ascending Colon, Via Natural or Artificial Opening Endoscopic, Diagnostic (ICD-10-PCS; principal; 2024-08-04 12:00)
DX: Z12.11 Encounter for screening for malignant neoplasm of colon (principal); D12.2 Benign neoplasm of ascending colon; D12.0 Benign neoplasm of cecum; D12.4 Benign neoplasm of descending colon; D12.3 Benign neoplasm of transverse colon; N42.9 Disorder of prostate, unspecified; K57.30 Diverticulosis of large intestine without perforation or abscess without bleeding; K64.8 Other hemorrhoids
CPT/HCPCS: 93005; 85025; 80048; 36415; 88305; 45385; J2704 ×2; J2003 ×2; J7120